=== PATIENT | male | born 2000 | race Caucasian/White ===

== ENCOUNTER 2020-02-04 15:51 | Emergency (ER) | payer MEDICAID ==
[~2020-02-04] VITALS: Ht 193 cm; Wt 104.5 kg
[2020-02-04 16:01] VITALS: BP 139/82
[2020-02-04] MEDS ORDERED: BACDS PO (17:08)
[2020-02-04] MEDS ORDERED: CEPH250T PO (17:08)
== END 2020-02-04 17:57 | disposition home or self-care (01) ==
LOC: ER 15:52
DX: L08.9 Local infection of the skin and subcutaneous tissue, unspecified (principal); R22.41 Localized swelling, mass and lump, right lower limb; Z79.899 Other long term (current) drug therapy
CPT/HCPCS: 99283